=== PATIENT | female | born 1995 ===

== ENCOUNTER → 2025-03-08 12:00 | Outpatient (REF) | payer OTHER, SELFPAY | LOC: DHSLP 12:00 | PROVIDERS: ATTENDING PHYSICIAN Internal Medicine; FAMILY PHYSICIAN Family Medicine | DX: G47.33 Obstructive sleep apnea (adult) (pediatric) (principal) | CPT/HCPCS: 95800 ==

== ENCOUNTER 2025-03-21 11:37 | Emergency (ER) | payer OTHER, SELFPAY ==
[2025-03-21 11:40] VITALS: BP 168/108
[2025-03-21 12:13] LABS: Urine Character Clear (Clear)
--- NOTE | 2025-03-21 12:24 | ED.GENMED ---
History of Present Illness
General
Chief Complaint: Flank Pain
Source: patient
Exam Limitations: none
Time Seen by Provider: 03/21/25 12:05
Nursing documentation reviewed up to this point in time: agreed with
History of Present Illness
History of Present Illness:
Patient is a 30-year-old female with history hypothyroid who presents to the emergency department with concerns of left flank pain. She describes a vague dull pain in her left flank yesterday which progressed to a sharp pain today. She has had waves
of much more intense pain and episodes of vomiting throughout the morning. No dysuria. She has noticed hematuria however is unsure if she may be starting her menstrual cycle.
No fever, diarrhea, or anorexia.
No history of similar symptoms. Her family does have a relatively significant hx of kidney stones.
Review of Systems
Review of Systems
Allergies reviewed?: Yes
All Other Systems: ROS reviewed and negative except as documented in HPI and ROS
Phy Exam
Physical Exam
Physical Exam:
Vitals: Hypertensive on arrival, ohterwise VSS. Afebrile
General: Patient is in moderate distress.
Skin: Warm and dry, no rashes or lesions
Head: Normocephalic, atraumatic
Eyes: Sclera nonicteric.
Throat: Protecting airway
Neck: Normal ROM, no cervical spine tenderness, no meningismus
Cardiac: Regular rate and rhythm, no murmurs.
Pulm: Normal respiratory effort, no wheezes, rales, rhonchi heard on exam
.
Abdomen: Abdomen soft. Mild tenderness in left flank. No reproducible abdominal pain. No rebound tenderness or guarding.
Extremities: No evidence of cyanosis or edema
Neuro: AAOx3. Grossly intact.
Psychiatric: Normal affect.
Course
Orders/Labs/Results
Orders:
Orders
03/21/25 11:48
Urinalysis Reflex To Culture Urgent
Date Specimen was Collected: 03/21/25
Time Specimen was Collected: 11:44
Urine Microscopic Reflex Cult Urgent
Urine Culture Urgent
ILDA Source: U
Specimen Description:
Date Specimen was Collected: 03/21/25
Time Specimen was Collected: 11:44
03/21/25 12:24
Abdomen/Pelvis wo Contrast CT [CT Abd/pelvis Wo Iv Cont] Urgent
Comment:
Reason For Exam: Left flank pain
0.9% Sodium Chloride 1000 ml [Nss] 1,000 ml IV BOLUS
Ketorolac [Toradol] 15 mg IV NOW STA
Ondansetron Injectable [Zofran] 4 mg IV NOW STA
Test Result ONCE
03/21/25 12:48
Complete Blood Count/With Diff Urgent
Comprehensive Metabolic Panel Urgent
HCG, Serum Qualitative Screen Urgent
03/21/25 14:51
Add On - Microbiology Urgent
Tests Added?: urine culture
Tamsulosin [Flomax] 0.4 mg PO NOW STA
Abnormal Lab Results
03/21/25 03/21/25
11:48 12:48
Hct 36.6 L %
(37.0-47.0)
MCHC 32.8 L g/dL
(33.0-37.0)
AST 39 H U/L
(14-36)
ALT 57 H U/L
(0-35)
Ur Occult Blood Reflex 4+ A
(Negative)
Leukocyte Esterase Rfl 1+ A
(Negative)
Urine RBC 40-50 A /HPF
(0-2)
Urine WBC (Reflex) 11-15 A /HPF
(0-5)
Urine Bacteria (Reflex) Few A
(Negative)
Urine Albumin (Reflex) 1+ A
(Neg - Trace)
03/21/25 12:48
03/21/25 12:48
Vital Signs
Initial and Last Documented VS:
Initial Vital Signs
Temp Pulse Resp BP Pulse Ox
97.7 F 90 18 168/108 96
03/21/25 11:40 03/21/25 11:40 03/21/25 11:40 03/21/25 11:40 03/21/25 11:40
Last Documented Vital Signs
Temp Pulse Resp BP Pulse Ox
97.7 F 75 16 132/75 100
03/21/25 11:40 03/21/25 14:45 03/21/25 14:45 03/21/25 14:45 03/21/25 14:45
MDM/Problems Addressed
Differential Diagnosis Includes:
Not limited to: renal colic, pyelonephritis, muscle strain, diverticulitis, zoster
MDM/Problems Addressed:
30 year-old female with left flank pain associated with nausea/vomiting. She did notice gross hematuria today. No fever or diarrhea. Vitals and physical exam as above.
Differential as above.
Clinical picture seems consistent with likely renal colic. Would consider also possible pyelonephritis, diverticulitis, etc. Will obtain labs, UA, noncontrast CT scan abdomen/pelvis.
CT scan reveals 4 mm left distal ureteral calculus. Labs unremarkable without evidence of renal insufficiency. UA noted � suspect likely contamination rather than acute infection. Will add on urine culture. She appears very well.
Pain well controlled here after IV Toradol. Given no evidence of associated infection � will discharge home with pain management, urology follow up. Strict return precautions discussed. Patient comfortable with plan.
Chronic conditions affecting care:
N/A
Acute Exacerbation and/or Progression of Chronic Illness:
N/A
*Radiology
Radiology exam reviewed: radiology read reviewed
*Pulse Oximetry
SaO2: 96
Oxygen Mode of Delivery: Room air
Patient hypoxic: no
*EKG
Interpreted by ED Provider?: NA
*Iron Melter Interpretation
Rate: Iron Melter- N/A
*Critical Care Note
Total Time (30-74mins, 75-104mins- exclusive of procedures): Not Applicable
ED Attending Note
-
Portions of this chart may have been created with voice recognition software.� Occasional wrong word or��sound alike� substitutions may have occurred due to the inherent limitations of voice recognition software.
Discharge Plan
Departure
Patient Disposition: Home (Routine Discharge)
Date of Disposition: 03/21/25
Time of Disposition: 14:52
Patient with high blood pressure during this ER visit?: Yes
Condition: Good
Discharge Problem:
Calculus of distal left ureter
Instructions: Kidney Stones (DC), Flank Pain (DC), BLOOD PRESSURE
Prescriptions:
New
tamsulosin [Flomax] 0.4 mg capsule
0.4 mg PO DAILY Qty: 14 0RF
oxycodone 5 mg tablet
5 mg PO Q6H PRN (Reason: Pain) Qty: 7 0RF
ondansetron 4 mg tablet,disintegrating
4 mg PO Q8H PRN (Reason: nausea and vomiting) Qty: 10 0RF
Referrals:
Rasta Duque MD [Active, Urology] - Next open appointment
Norberto Nolan MD [Family Provider, Family Practice]
Activity Restrictions/Additional Instructions:
RETURN TO THE EMERGENCY DEPARTMENT ANY FEVER, CHILLS, INTRACTABLE PAIN, INTRACTABLE NAUSEA/VOMITING, DIFFICULTIES URINATING, WORSENING IN CURRENT SYMPTOMS, OR ANY OTHER CONCERNS
- As discussed�your CT scan revealed a 4 mm stone in your left distal ureter.
- For pain control, take NSAIDs and/or Tylenol as needed. A prescription for oxycodone has been sent to your pharmacy which you can take for intractable pain. This may cause drowsiness and you should not take prior to driving.
- It is important to stay well-hydrated. Please take once daily or until the stone passes.
- Follow-up with urology for further evaluation and to ensure that your symptoms are improving.
Monitor your symptoms closely and return to the emergency department with any acute worsening/new symptoms or any other concerns
Interventions
Interventions:
*Risk Screen - Suicide Last Done: 03/21/25 11:40
*General Assessment Last Done: 03/21/25 13:46
*Neglect/Abuse Screening Last Done: 03/21/25 11:40
*ED- Fall Risk Assessment Last Done: 03/21/25 13:46
*Nursing Disposition Last Done: 03/21/25 15:02
GI-Fqpzab-Xhfjmiwndh Assessment Last Done: 03/21/25 13:46
ED-Female Genitourinary Assessment Last Done: 03/21/25 13:46
Discharge Date and Time
Discharge Date/Time: 03/21/25 15:03
Print Language: NEPALI
[2025-03-21] MEDS: ZOFRAN 4 MG IV (12:49)
[2025-03-21] MEDS: TORADOL 15 MG IV (12:49)
[2025-03-21] MEDS: NSS 1000 IV (12:49)
[2025-03-21 12:52] LABS: Urine Squamous Cell >30 /LPF (Few)
[2025-03-21 12:54] LABS: Urine Red Blood Cell 40-50 /HPF (0-2)
[2025-03-21 12:59] LABS: Hematocrit 36.6 % (37.0-47.0); Hemoglobin 12.0 g/dL (12.0-16.0); Mean Corp Hgb Conc. 32.8 g/dL (33.0-37.0); Mean Corpuscular Volume 83.4 fL (81.0-99.0); Nucleated Red Blood Cells % 0 %; Platelet Count 318 10^3/uL (130-400); Red Cell Dist. Width 13.2 % (11.5-14.5)
[2025-03-21 13:14] LABS: ALT (SGPT) 57 U/L (0-35); AST (SGOT) 39 U/L (14-36); Albumin 4.6 g/dl (3.5-5.0); Alkaline Phosphatase 56 U/L (38-126); Blood Urea Nitrogen 15 mg/dl (7-17); Calcium 9.6 mg/dl (8.4-10.2); Carbon Dioxide 29 mmol/L (22-30); Chloride 105 mmol/L (98-107); Glucose 85 mg/dl (70-99); Potassium 4.3 mmol/L (3.5-5.1); Sodium 139 mmol/L (135-145); Total Protein 7.5 g/dl (6.3-8.2); eGFR > 60.00
[2025-03-21 13:23] LABS: HCG, Serum Qualitative Screen Negative
[2025-03-21 14:45] VITALS: BP 132/75
[2025-03-21] MEDS: FLOMAX 0.4 MG PO (14:57)
== END 2025-03-21 15:03 | disposition home or self-care (01) ==
LOC: EMR 11:37
PROVIDERS: Physician Assistant; EMERGENCY PHYSICIAN Emergency Medicine; FAMILY PHYSICIAN Family Medicine
DX: N13.2 Hydronephrosis with renal and ureteral calculous obstruction (principal); R11.2 Nausea with vomiting, unspecified; E03.9 Hypothyroidism, unspecified
CPT/HCPCS: 96374; 96375; 96361; 99284; 74176; 80053; 81003; 81015; 84703; 85025; 87086

== ENCOUNTER 2025-05-02 17:53 | Emergency (ER) | payer OTHER, SELFPAY ==
[2025-05-02 18:05] VITALS: BP 143/97
[2025-05-02 18:26] LABS: Hematocrit 35.6 % (37.0-47.0); Hemoglobin 11.9 g/dL (12.0-16.0); Mean Corp Hgb Conc. 33.4 g/dL (33.0-37.0); Mean Corpuscular Volume 83.4 fL (81.0-99.0); Nucleated Red Blood Cells % 0 %; Platelet Count 515 10^3/uL (130-400); Red Cell Dist. Width 12.7 % (11.5-14.5)
[2025-05-02 18:50] LABS: HCG, Serum Qualitative Screen Negative
[2025-05-02 18:56] LABS: ALT (SGPT) 70 U/L (0-35); AST (SGOT) 37 U/L (14-36); Albumin 4.8 g/dl (3.5-5.0); Alkaline Phosphatase 81 U/L (38-126); Blood Urea Nitrogen 11 mg/dl (7-17); Calcium 9.8 mg/dl (8.4-10.2); Carbon Dioxide 27 mmol/L (22-30); Chloride 101 mmol/L (98-107); Glucose 96 mg/dl (70-99); Potassium 4.0 mmol/L (3.5-5.1); Sodium 137 mmol/L (135-145); Total Protein 8.1 g/dl (6.3-8.2); eGFR > 60.00
[2025-05-02 19:11] VITALS: BMI 34.1
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
[2025-05-02] MEDS: MORPHINE SULFATE 4 MG IV (19:36)
[2025-05-02] MEDS: ZOFRAN 4 MG IV ×2 (19:36→21:25)
[2025-05-02] MEDS: NSS 1000 IV (20:03)
[2025-05-02] MEDS: ROXICODONE 10 MG PO (21:25)
== END 2025-05-02 21:40 | disposition home or self-care (01) ==
LOC: EMR 17:53
PROVIDERS: Emergency Medicine; EMERGENCY PHYSICIAN Student in an Organized Health Care Education/Training Program; FAMILY PHYSICIAN Family Medicine
DX: S36.039A Unspecified laceration of spleen, initial encounter (principal); S06.0X0A Concussion without loss of consciousness, initial encounter; V89.2XXA Person injured in unspecified motor-vehicle accident, traffic, initial encounter
CPT/HCPCS: 96374; 96375; 96376; 96361; 99284; 74177; 80053; 84703; 85025; Q9967